=== PATIENT | female | born 1950 | race Caucasian/White ===

== ENCOUNTER → 2019-04-24 | Outpatient (CLI) | payer MEDICARE ==
[~2019-04-24] MED LIST: LVT.025T PO; SULF1TAB38 PO; [UNRECOGNIZED DRUG - REMARK]
--- NOTE | 2019-04-24 15:58 | Diagnostic Imaging Report ---
INDICATION: Postmenopausal screening. COMPARISON: None. FINDINGS: AP lumbar spine: [BMD (g/cm2): 0.828] [T-Score: -3.1] [Z-Score: -1.2] [BMD Previous: N/A] [BMD % Change: N/A] LT Hip Neck: [BMD (g/cm2): 0.705] [T-Score: -2.4] [Z-Score: -0.7] LT Hip Total: [BMD (g/cm2):0.756] [T-Score:-2.0] [Z-Score: -0.6] [BMD Previous: N/A] [BMD % Change: N/A] RT Hip Neck: [BMD (g/cm2):0.679] [T-Score:-2.6] [Z-Score:-0.9] RT Hip Total: [BMD (g/cm2):0.740] [T-score:-2.1] [Z-Score:-0.7] [BMD Previous:N/A] [BMD % Change:N/A] *Indicates significant change from prior examination based on 95% confidence level. World Health Organization criteria for BMD interpretation classify patients as Normal (T-score at or above -1.0), Osteopenic (T-score between -1.0 and -2.5) or Osteoporotic (T-score at or below -2.5). LIMITATIONS AND MODIFICATION: None. FRACTURE RISK (FRAX SCORE): The ten year probability of (%): Major Osteoporotic Fracture: [13.8] Hip Fracture: [3.3] IMPRESSION: 1. Osteoporosis. 2. Baseline examination. 3. See below National Osteoporosis Foundation guidelines on when to potentially initiate pharmacologic therapy. Based on the National Osteoporosis Foundation Guidelines, pharmacologic treatment should be initiated in any of the following, unless clinical conditions suggest otherwise: * Any patient with prior fragility fracture of the hip or vertebrae. A spine fracture indicates 5X risk for subsequent spine fracture and 2X risk for subsequent hip fracture. * Osteoporosis (T-score <-2.5). * Postmenopausal women and men age 50 and older with low bone mass/osteopenia (T-score between -1.0 and -2.5) by DXA and 10-year major osteoporotic fracture greater than 20% or a 10-year probability of hip fracture greater than 3%. These fracture risks are supplied above in the FRAX score, if applicable. * Clinician judgement and/or patient preferences may indicate treatment for people with 10-year fracture probabilities above or below these levels. Dictated by: Dictated on workstation # [id number]
--- NOTE | 2019-04-24 18:58 | Diagnostic Imaging Report ---
INDICATION: Routine screening. Comparison is made with prior mammogram from 12/03/2014. 2-D and 3-D bilateral screening mammography was performed with CAD. The current study was also evaluated with a Computer Aided Detection (CAD) system. 3-D tomosynthesis was also performed and reviewed. Both breasts remain heterogeneously dense, limiting the sensitivity of mammography. Benign calcifications in the right breast are noted. No mass or malignant appearing microcalcifications are seen. The axillae are unremarkable. IMPRESSION: No mammographic features suspicious for malignancy are identified. ACR BI-RADS Category 2: Benign findings. Result letter will be mailed to the patient. Note: At least 10% of breast cancer is not imaged by mammography. Dictated by: Dictated on workstation # [id number]
== END ==
LOC: RAD 13:06
PROVIDERS: ATTEND Nurse Practitioner Primary Care
DX: Z12.31 Encounter for screening mammogram for malignant neoplasm of breast (principal); N95.9 Unspecified menopausal and perimenopausal disorder; M81.0 Age-related osteoporosis without current pathological fracture
CPT/HCPCS: 77067; 77080

== ENCOUNTER → 2020-09-02 | Outpatient (CLI) | payer MEDICARE ==
[2020-09-02 16:11] LABS: HEMOGLOBIN 13.9 g/dL (11.5-16.0); MEAN PLATELET VOLUME 9.8 fL (9.0-12.2); WHITE BLOOD COUNT 5.9 10^3/uL (4.3-11.0)
[2020-09-02 16:19] LABS: ALBUMIN 4.9 GM/DL (3.2-4.5)
[2020-09-02 16:20] LABS: CHLORIDE 106 MMOL/L (98-107); SODIUM 141 MMOL/L (135-145)
[2020-09-02 16:21] LABS: CALCIUM 9.1 MG/DL (8.5-10.1)
[2020-09-02 16:22] LABS: GLUCOSE 109 MG/DL (70-105)
[2020-09-02 16:23] LABS: CARBON DIOXIDE 22 MMOL/L (21-32)
[2020-09-02 16:24] LABS: BILIRUBIN,TOTAL 0.5 MG/DL (0.1-1.0)
[2020-09-02 16:25] LABS: ALKALINE PHOSPHATASE 109 U/L (40-136)
[2020-09-02 16:26] LABS: CREATININE SERUM 0.89 MG/DL (0.60-1.30); GFR ESTIMATED > 60
[2020-09-02 16:27] LABS: BUN/CREATININE RATIO 12
[2020-09-02 16:29] LABS: ALANINE AMINOTRANSFERASE 34 U/L (0-55); CREATINE KINASE 132 U/L (29-168)
== END ==
LOC: CARD 12:45
PROVIDERS: ATTEND Nurse Practitioner Family
DX: I10 Essential (primary) hypertension (principal); E03.8 Other specified hypothyroidism; R07.9 Chest pain, unspecified
CPT/HCPCS: 36415; 80053; 82550; 84439; 84443; 84484; 85027; 93005

== ENCOUNTER 2020-09-06 14:49 | Emergency (ER) | payer MEDICARE ==
[~2020-09-06] VITALS: Ht 157.8 cm; Wt 60.3 kg
--- NOTE | 2020-09-06 15:09 | ED Cardiac General ---
History of Present Illness General Chief Complaint: Respiratory Problems Stated Complaint: WEAK,WOBBLY,TROUBLE BREATHING Nursing Triage Note: PT AMBULATE TO ROOM 06 WITH C/O WEAKNESS, SOB X2 WEEKS. PT REPORTS RECENT DX OF HYPERTENSION X2 WEEKS AGO. Source: patient Exam Limitations: no limitations History of Present Illness Date Seen by Provider: Sep 06, 2020 Time Seen by Provider: 14:56 Initial Comments The patient presents to the ER by private conveyance from home with chief complaint of anxiety about her hypertension and feeling weak and tired for the past 2 weeks. She went to Dr. Mejia's office a week ago had an EKG and some blood work done. She was set up to go see cardiology but does not have the appointment date yet. She does not have a history of coronary disease. She denies chest pain or lung disease. She is not a smoker. She was noted to have significantly elevated high blood pressure and was started on metoprolol in addition to her amlodipine. She said tonight her blood pressure was 170 systolic. She noted when the metoprolol was started this did decrease her symptoms. She is not having any swelling cough fever chills vomiting but she is having some mild nausea occasionally. She has never had cardiac catheterization. She had been referred to Dr. Kang but has not seen him yet. She has a history of hypothyroidism and hyperlipidemia as well as hypertension but no diabetes or significant familial history. No personal coronary history. Not a smoker. Allergies and Home Medications Allergies Coded Allergies: No Known Allergies (Verified Allergy, Unknown, 01/31/06) Home Medications Levothyroxine Sodium 25 Mcg Tablet, 1 EACH PO DAILY, (Reported) Trimethoprim/Sulfamethoxazole 1 Ea Tablet, 1 EA PO BID FOR INFECTION Prescribed by: VLAD TAYLOR on 02/27/12 9946 [blood pressure pill?] , DAILY, (Reported) Patient Home Medication List Home Medication List Reviewed: Yes Review of Systems Review of Systems Constitutional: No chills, No fever EENTM: No Blurred Vision, No Double Vision Respiratory: Denies Cough, Denies Shortness of Air Cardiovascular: Denies Chest Pain, Denies Lightheadedness Gastrointestinal: Denies Constipated, Denies Diarrhea, Denies Nausea Genitourinary: Denies Burning, Denies Discharge Musculoskeletal: No back pain, No joint pain All Other Systems Reviewed Negative Unless Noted: Yes Past Hrdtiqv-Mdxxvp-Fvuhwf Hx Patient Social History Alcohol Use: Regular Use Alcohol Beverage of Choice: Whiskey (2-3 nightly) Smoking Status: Never a Smoker Recent Infectious Disease Expo: No Physical Exam Vital Signs Vital Signs - First Documented 09/06/20 14:53 Temp 36.8 Pulse 104 Resp 17 B/P (MAP) 192/96 (128) O2 Delivery Room Air Capillary Refill : Less Than 3 Seconds Height, Weight, BMI Height: '" Weight: lbs. oz. kg; 24.00 BMI Method:Stated General Appearance: No Apparent Distress, WD/WN HEENT: PERRL/EOMI, Pharynx Normal, Moist Mucous Membranes Neck: Full Range of Motion, Normal Inspection Respiratory: Chest Non Tender, Lungs Clear, Normal Breath Sounds, No Accessory Muscle Use, No Respiratory Distress Cardiovascular: Regular Rate, Rhythm, Normal Peripheral Pulses Gastrointestinal: Normal Bowel Sounds, Non Tender, Soft Extremity: Normal Capillary Refill, Normal Inspection, No Pedal Edema Neurologic/Psychiatric: Alert, Oriented x3 Skin: Normal Color, Warm/Dry Progress/Results/Core Measures Results/Orders Lab Results Laboratory Tests Test 09/06/20 15:05 Range/Units White Blood Count 6.0 4.3-11.0 10^3/uL Red Blood Count 4.73 3.80-5.11 10^6/uL Hemoglobin 14.8 11.5-16.0 g/dL Hematocrit 44 35-52 % Mean Corpuscular Volume 92 80-99 fL Mean Corpuscular Hemoglobin 31 25-34 pg Mean Corpuscular Hemoglobin Concent 34 32-36 g/dL Red Cell Distribution Width 13.1 10.0-14.5 % Platelet Count 262 130-400 10^3/uL Mean Platelet Volume 10.2 9.0-12.2 fL Immature Granulocyte % (Auto) 0 % Neutrophils (%) (Auto) 52 42-75 % Lymphocytes (%) (Auto) 38 12-44 % Monocytes (%) (Auto) 7 0-12 % Eosinophils (%) (Auto) 3 0-10 % Basophils (%) (Auto) 0 0-10 % Neutrophils # (Auto) 3.1 1.8-7.8 10^3/uL Lymphocytes # (Auto) 2.3 1.0-4.0 10^3/uL Monocytes # (Auto) 0.4 0.0-1.0 10^3/uL Eosinophils # (Auto) 0.2 0.0-0.3 10^3/uL Basophils # (Auto) 0.0 0.0-0.1 10^3/uL Immature Granulocyte # (Auto) 0.0 0.0-0.1 10^3/uL Prothrombin Time 12.6 12.2-14.7 SEC INR Comment 0.9 0.8-1.4 Activated Partial Thromboplast Time 31 24-35 SEC D-Dimer < 0.27 0.00-0.49 UG/ML Sodium Level 140 135-145 MMOL/L Potassium Level 3.6 3.6-5.0 MMOL/L Chloride Level 105 98-107 MMOL/L Carbon Dioxide Level 21 21-32 MMOL/L Anion Gap 14 5-14 MMOL/L Blood Urea Nitrogen 10 7-18 MG/DL Creatinine 0.82 0.60-1.30 MG/DL Estimat Glomerular Filtration Rate > 60 BUN/Creatinine Ratio 12 Glucose Level 113 H 70-105 MG/DL Calcium Level 9.0 8.5-10.1 MG/DL Corrected Calcium 8.5-10.1 MG/DL Magnesium Level 2.0 1.6-2.4 MG/DL Total Bilirubin 0.4 0.1-1.0 MG/DL Aspartate Amino Transf (AST/SGOT) 26 5-34 U/L Alanine Aminotransferase (ALT/SGPT) 27 0-55 U/L Alkaline Phosphatase 121 40-136 U/L Myoglobin 25.5 10.0-92.0 NG/ML Troponin I < 0.028 <0.028 NG/ML Total Protein 8.3 H 6.4-8.2 GM/DL Albumin 5.1 H 3.2-4.5 GM/DL My Orders Orders - CLYDE JACK Cbc With Automated Diff (09/06/20 15:03) Magnesium (09/06/20 15:03) Chest 1 View, Ap/Pa Only (09/06/20 15:03) Ekg Tracing (09/06/20 15:03) Comprehensive Metabolic Panel (09/06/20 15:03) Myoglobin Serum (09/06/20 15:03) Protime With Inr (09/06/20 15:03) Partial Thromboplastin Time (09/06/20 15:03) O2 (09/06/20 15:03) Monitor-Rhythm Ecg Trace Only (09/06/20 15:03) Lipid Panel (09/07/20 06:00) Ed Iv/Invasive Line Start (09/06/20 15:03) BNP (09/06/20 15:03) Fibrin Degradation Products (09/06/20 15:03) Troponin I (09/06/20 15:03) Nitroglycerin 0.4 Mg Btl 25's (Nitrostat (09/06/20 15:15) Aspirin Chewable Tablet (Baby Aspirin Ch (09/06/20 15:15) Ekg Tracing (09/06/20 15:40) Medications Given in ED Current Medications Medications Dose Ordered Sig/Josefa Route Start Time Stop Time Status Last Admin Dose Admin Aspirin 324 mg ONCE ONCE PO 09/06/20 15:15 09/06/20 15:16 DC 09/06/20 15:08 324 MG Nitroglycerin 0.4 mg UD PRN SL 09/06/20 15:15 09/06/20 15:08 0.4 MG Vital Signs/I&O 09/06/20 14:53 Temp 36.8 Pulse 104 Resp 17 B/P (MAP) 192/96 (128) O2 Delivery Room Air Blood Pressure Mean: 128 Progress Progress Note : Time: 15:10 Progress Note Hypertensive urgency. Potentially an atypical angina. We will check her labs, chest x-ray and at this time she has a septic vital signs. Lesser something that looks like pneumonia this is likely more related to your cardiac since her hypertensive urgency was improved with metoprolol which also improved her symptoms last week. While she is not having chest pain her heart score would be 5 points even with a negative troponin. Initial ECG Impression Date: Sep 06, 2020 Initial ECG Impression Time: 14:59 Initial ECG Rate: 93 Initial ECG Rhythm: Normal Sinus Initial ECG Intervals: Normal Initial ECG Impression: Nonspecific Changes Initial ECG Comparisson: No Previous ECG Available Comment No previous EKGs to compare to. There is some borderline ST depression in the lateral leads V4, V5 and V6 approximately 1 block. 2 and aVF also share about 1/2-[address] depression. There is a half block of elevation in lead aVR. No evident ST elevation myocardial infarction. EKG : EKG Time: 15:42 Rate: 72 Rhythm: Normal Sinus Intervals: Normal ECG Comparisson: Changed ECG Impression: Normal Comment Normal sinus rhythm without clinically relevant ST changes. The minor, ST changes of uncertain significance are no longer present on the EKG. Diagnostic Imaging Diagonstic Imaging: Xray Plain Films/CT/US/NM/MRI: chest Comments [facility] [place], [place] NAME: JAIR ARRINGTON [facility] REC#: [id number] PT STATUS: REG ER : 1950 PHYSICIAN: CLYDE JACK MD ADMIT DATE: 09/06/20/ER Draft Date of Exam:09/06/20 CHEST 1 VIEW, AP/PA ONLY INDICATION: Chest pain. EXAMINATION: Portable erect AP chest at 3:18 p.m. FINDINGS: The heart size is within normal limits and stable when compared to 10/21/2006. The lungs remain clear. There is still no sign of failure, pneumonia or a pleural effusion. The mediastinum is not widened. The osseous structures are intact. IMPRESSION: There is no evidence for active disease. Dictated on workstation # [id number] Dict: 09/06/20 1531 Trans: 09/06/20 1539 [facility] [id number] Interpreted by: REVA REAGAN MD Electronically signed by: Reviewed: Reviewed by Me Consults : Consulting Physician: Huyen SUGGS MD Consults Notes Discussed the case with Dr. Pagan and since the patient is feeling better after some blood pressure control nitroglycerin he is okay with initiating some lisinopril and have her continue to follow-up with Dr. Kang outpatient. Departure Impression Primary Impression: Hypertensive urgency Disposition: HOME, SELF-CARE Condition: Stable Departure-Patient Inst. Decision time for Depature: 15:45 Referrals: KAUSHIK MIRANDA DO (PCP) Primary Care Physician WILNER BRAMBILA APRN (Family) Primary Care Physician LACY KANG MD Patient Instructions: Malignant Hypertension (DC) Add. Discharge Instructions: Promptly return to the ER if you experience chest pain or worsening shortness of air. Continue to take your medications as prescribed. Take lisinopril 20 mg daily. Tuesday call Dr. Kang's office and request follow-up next week. All discharge instructions reviewed with patient and/or family. Voiced understanding. Scripts Lisinopril (Lisinopril) 20 Mg Tablet 20 MG PO DAILY for 14 Days, #14 TAB 0 Refills Prov: CLYDE JACK 09/06/20 Copy Copies To 1: LACY KANG MD, TITUS J Sep 06, 2020 15:09
[2020-09-06] MEDS ORDERED: NITROGLYCERIN 0.4 MG SL TABS BTL 25'S SL PRN (15:15)
[2020-09-06] MEDS ORDERED: ASPIRIN 81 MG CHEW (CHILDREN'S ASA) PO ONE (15:15)
[2020-09-06 15:22] LABS: ALBUMIN 5.1 GM/DL (3.2-4.5); CHLORIDE 105 MMOL/L (98-107); INR 0.9 (0.8-1.4); POTASSIUM 3.6 MMOL/L (3.6-5.0); PROTHROMBIN TIME PATIENT 12.6 SEC (12.2-14.7); SODIUM 140 MMOL/L (135-145)
[2020-09-06 15:25] LABS: GLUCOSE 113 MG/DL (70-105); TOTAL PROTEIN 8.3 GM/DL (6.4-8.2)
[2020-09-06 15:26] LABS: CARBON DIOXIDE 21 MMOL/L (21-32)
[2020-09-06 15:27] LABS: BILIRUBIN,TOTAL 0.4 MG/DL (0.1-1.0)
[2020-09-06 15:28] LABS: ALKALINE PHOSPHATASE 121 U/L (40-136); CREATININE SERUM 0.82 MG/DL (0.60-1.30); GFR ESTIMATED > 60
[2020-09-06 15:29] LABS: BUN/CREATININE RATIO 12
[2020-09-06 15:30] LABS: BASOPHILS % (AUTO) 0 % (0-10); EOSINOPHILS # (AUTO) 0.2 10^3/uL (0.0-0.3); EOSINOPHILS % (AUTO) 3 % (0-10); HEMATOCRIT 44 % (35-52); HEMOGLOBIN 14.8 g/dL (11.5-16.0); LYMPHOCYTES # (AUTO) 2.3 10^3/uL (1.0-4.0); LYMPHOCYTES % (AUTO) 38 % (12-44); MEAN CORPUSCULAR HEMOGLOBIN 31 pg (25-34); MEAN CORPUSCULAR HGB CONC 34 g/dL (32-36); MEAN CORPUSCULAR VOLUME 92 fL (80-99); MEAN PLATELET VOLUME 10.2 fL (9.0-12.2); MONOCYTES # (AUTO) 0.4 10^3/uL (0.0-1.0); MONOCYTES % (AUTO) 7 % (0-12); NEUTROPHILS # (AUTO) 3.1 10^3/uL (1.8-7.8); NEUTROPHILS % (AUTO) 52 % (42-75); PLATELET COUNT 262 10^3/uL (130-400)
[2020-09-06 15:31] LABS: ALANINE AMINOTRANSFERASE 27 U/L (0-55)
--- NOTE | 2020-09-06 15:41 | Diagnostic Imaging Report ---
INDICATION: Chest pain. EXAMINATION: Portable erect AP chest at 3:18 p.m. FINDINGS: The heart size is within normal limits and stable when compared to 10/21/2006. The lungs remain clear. There is still no sign of failure, pneumonia or a pleural effusion. The mediastinum is not widened. The osseous structures are intact. IMPRESSION: There is no evidence for active disease. Dictated by: Dictated on workstation # [id number]
[2020-09-06] MEDS ORDERED: LISI20TA26 PO (15:52)
[2020-09-06] MEDS ORDERED: lisINopril 20 MG (PRINIVIL) TABLET PO ONE (16:00)
[2020-09-06 16:12] VITALS: BP 129/71
== END 2020-09-06 16:12 | disposition home or self-care (01) ==
LOC: EDUNIT# 14:49 → ER 14:50
DX: I16.0 Hypertensive urgency (principal); F41.9 Anxiety disorder, unspecified
CPT/HCPCS: 36415; 71045; 80053; 83735; 83874; 83880; 84484; 85025; 85379; 85610; 85730; 93005; 93041

== ENCOUNTER → 2020-09-17 | Outpatient (CLI) | payer MEDICARE ==
[~2020-09-17] VITALS: Ht 157 cm; Wt 59.0 kg
[~2020-09-17] MED LIST changes: +CATHETER FLUSH 10 ML SYR IV PRN; +LISI20TA26 PO
[2020-09-17 13:03] VITALS: BP 146/79
--- NOTE | 2020-09-17 15:18 | Cardiology Stress Test Report ---
Stress Test Report Date of Procedure/Referring: Date of Procedure: Sep 17, 2020 PCP Lacy Kang MD Admitting Physician Vesna Sutton DO Indications: HTN Baseline Heart Rate: 79 Baseline Blood Pressure: Blood Pressure Systolic: 146 Blood Pressure Diastolic: 79 Vital Signs Date Time Temp Pulse Resp B/P (MAP) Pulse Ox O2 Delivery O2 Flow Rate FiO2 09/17/20 13:03 77 146/79 (101) 98 Room Air Baseline Vital Signs Vital Signs Date Time Temp Pulse Resp B/P (MAP) Pulse Ox O2 Delivery O2 Flow Rate FiO2 09/17/20 13:03 77 146/79 (101) 98 Room Air Baseline EKG: Baseline EKG: NSR Summary: After explaining the procedure and details to the patient, she signed the consent and was brought to the stress nuclear laboratory. Patient exercised on standard Loco protocol, EKG, heart rate and blood pressure were monitored continuously, resting and stress doses of radio tracer were injected, imaging was acquired and reviewed in the short axis, horizontal long axis and vertical long axis views Patient was able to exercise for a total of 5:30 minutes on Loco protocol, METs 7.1 Maximum heart rate 135 Maximum blood pressure 160/69 Stress EKG, Minimal nondiagnostic changes Recovery EKG, Return to baseline TID: 0.99 SSS: 3 SDS: 3 EF: 72 Conclusion: 1. Good exercise tolerance for total of 5 minutes 30 seconds on standard Loco protocol, 7.1 METs achieving 88 percent of maximum expected heart rate 2. Appropriate heart rate and blood pressure response to exercise returned to baseline during recovery 3. Minimal nondiagnostic EKG changes with exercise returned to baseline during recovery 4. No ischemia or infarction on SPECT images, breast attenuation was noted 5. Normal LV size, EF 72 percent LACY KANG MD Sep 17, 2020 15:18
== END ==
LOC: CARD 10:29
PROVIDERS: ATTEND Internal Medicine Cardiovascular Disease
DX: I10 Essential (primary) hypertension (principal)
CPT/HCPCS: 78452; 93017; 93306; A9502

== ENCOUNTER → 2020-09-18 | Outpatient (CLI) | payer MEDICARE ==
[~2020-09-18] MED LIST changes: -CATHETER FLUSH 10 ML SYR IV PRN
[2020-09-18 10:28] LABS: ALANINE AMINOTRANSFERASE 28 U/L (0-55); ALBUMIN 4.7 GM/DL (3.2-4.5); ALKALINE PHOSPHATASE 104 U/L (40-136); BILIRUBIN,TOTAL 0.5 MG/DL (0.1-1.0); BUN/CREATININE RATIO 13; CARBON DIOXIDE 24 MMOL/L (21-32); CHLORIDE 104 MMOL/L (98-107); CHOLESTEROL 161 MG/DL (< 200); CREATININE SERUM 0.83 MG/DL (0.60-1.30); GFR ESTIMATED > 60; GLUCOSE 102 MG/DL (70-105); HDL CHOLESTEROL 57 MG/DL (40-60); SODIUM 138 MMOL/L (135-145); TOTAL PROTEIN 7.5 GM/DL (6.4-8.2); TRIGLYCERIDES 74 MG/DL (<150); VLDL CHOLESTEROL 15 MG/DL (5-40)
== END ==
LOC: LAB 09:56
PROVIDERS: ATTEND Internal Medicine Cardiovascular Disease
DX: E78.2 Mixed hyperlipidemia (principal)
CPT/HCPCS: 36415; 80053; 80061

== ENCOUNTER → 2021-02-10 | Outpatient (CLI) | payer MEDICARE ==
[~2021-02-10] MED LIST changes: +CATHETER FLUSH 10 ML SYR IV PRN; +HOLD METFORMIN - RECEIVED CONTRAST 20 ML VIAL IV SCH; +IOHEXOL 350 MG/ML 100 ML (OMNIPAQUE 350) VIAL IV ONE; +NS 100 ML (IVPB) BAG IV ONE
[2021-02-10 11:33] LABS: CALCIUM 9.2 MG/DL (8.5-10.1); CREATININE SERUM 0.8 MG/DL (0.60-1.30); POTASSIUM 3.9 MMOL/L (3.6-5.0)
--- NOTE | 2021-02-10 14:21 | Diagnostic Imaging Report ---
PROCEDURE: CT Angio Abdomen/Pelvis with. TECHNIQUE: Multiple contiguous axial images were obtained through the abdomen and pelvis after the uneventful bolus administration of intravenous contrast. Sagittal and coronal MIP reconstructions with then performed. All CT scans use one or more of the following dose optimizing techniques: Automated exposure control, MA and/or KvP adjustment based on patient size and exam type or iterative reconstruction. INDICATION: Abdominal aortic aneurysm. COMPARISON: No prior studies are available for comparison. FINDINGS: The lung bases are free of acute infiltrates. There is some scarring or atelectasis in the left lower lobe. The abdominal aorta is normal in caliber. There is no evidence of aneurysm. There is no dissection. The celiac and SMA are widely patent. The PATTIE is patent. There are two renal arteries on the right and a single renal artery on the left, which appear to be patent. Both common and external iliac arteries as well as common femoral arteries are patent. Generalized low density throughout the liver is noted consistent with hepatic steatosis. No discrete liver mass is detected. The gallbladder is unremarkable. There is no biliary ductal dilatation. Pancreas and spleen are unremarkable. No adrenal mass is detected. Kidneys are unremarkable. No calculi or hydronephrosis is identified. No central retroperitoneal or mesenteric lymphadenopathy is identified. Small and large bowel loops are normal in caliber. There is no obstruction. No free fluid or fluid collection is identified. There is generalized diverticulosis of the sigmoid, but no evidence of acute diverticulitis. No iliac or inguinal lymphadenopathy is identified. Bladder is unremarkable. Bony structures are nonacute. IMPRESSION: 1. Unremarkable CT angiogram of the abdomen and pelvis without evidence of abdominal aortic aneurysm or dissection. 2. Hepatic steatosis. 3. Uncomplicated diverticulosis. Dictated by: Dictated on workstation # [id number]
== END ==
LOC: RAD 11:45
PROVIDERS: ATTEND Internal Medicine Cardiovascular Disease
DX: K76.0 Fatty (change of) liver, not elsewhere classified (principal); K57.30 Diverticulosis of large intestine without perforation or abscess without bleeding; I10 Essential (primary) hypertension
CPT/HCPCS: 36415; 74174; 80048

== ENCOUNTER 2022-08-30 05:36 | Outpatient (CLI) | payer MEDICARE ==
[~2022-08-30] VITALS: Ht 157.5 cm; Wt 58.2 kg
[~2022-08-30 05:36] MED LIST changes: -CATHETER FLUSH 10 ML SYR IV PRN; -HOLD METFORMIN - RECEIVED CONTRAST 20 ML VIAL IV SCH; -IOHEXOL 350 MG/ML 100 ML (OMNIPAQUE 350) VIAL IV ONE; -NS 100 ML (IVPB) BAG IV ONE
[2022-09-01] MEDS ORDERED: LATA7.5D OP (14:19)
[2022-09-01] MEDS ORDERED: ROSU10TA28 PO (14:19)
[2022-09-01] MEDS ORDERED: LEVO100C4 PO (14:19)
[2022-09-01] MEDS ORDERED: AMLO-251 PO (14:19)
[2022-09-01] MEDS ORDERED: BRIM5DRO12 OP (14:19)
== END 2022-09-01 14:31 | disposition home or self-care (01) ==
LOC: PREOP 05:36
PROVIDERS: ATTEND Specialist
DX: Z01.818 Encounter for other preprocedural examination (principal)

== ENCOUNTER 2022-09-03 07:57 | Day surgery (SDC) | payer MEDICARE ==
[~2022-09-03] VITALS: Ht 157.5 cm; Wt 58.2 kg
[~2022-09-03 07:57] MED LIST changes: +AMLO-251 PO; +BRIM5DRO12 OP; +LATA7.5D OP; +LEVO100C4 PO; +ROSU10TA28 PO
[2022-09-03 08:05] VITALS: BP 139/82
[2022-09-03] MEDS: TETRACAINE 0.5% OPHTH SOLN 4 ML BTL (SINGLE DOSE ONLY) OU PRN ×4 (08:19→08:33)
[2022-09-03] MEDS: TROPICAMIDE 1% OPH SOLN (MYDRIACYL) 15 ML BTL OP SCH ×3 (08:23→08:33)
[2022-09-03] MEDS: PHENYLEPHRINE 10% OPHTH (NEO-SYN) 5 ML BTL OU SCH ×3 (08:23→08:33)
[2022-09-03] MEDS ORDERED: TIMOLOL 0.5% (CATARACTS) 0.3 ML BTL OU PRN (08:30)
[2022-09-03] MEDS ORDERED: MOXIFLOXACIN OPHTH SOLN 5 MG/ML 0.3 ML SYRINGE OP ONE (08:30)
[2022-09-03] MEDS ORDERED: POVIDONE (BETADINE) OPHTH SOLN 5% 30 ML OP ONE (08:30)
--- NOTE | 2022-09-03 08:47 | Ophthalmologist Pre-Op Note ---
Pre-Operative Progress Note H&P Reviewed The H&P was reviewed, patient examined and no changes noted. Date H&P Reviewed: Sep 03, 2022 Time H&P Reviewed: 08:47 Pre-Op Dx Cataract, Left Eye CHRISTA DUMONT MD Sep 03, 2022 08:47
[2022-09-03] MEDS ORDERED: MIDAZOLAM 2 MG/2 ML (VERSED) VIAL ONE (08:52)
--- NOTE | 2022-09-03 09:10 | Ophthalmology Operative Report ---
Cataract removal/placement IOL PREOPERATIVE DIAGNOSIS: Cataract Left Eye POSTOPERATIVE DIAGNOSIS: Cataract Left Eye PROCEDURE: Cataract removal and placement of posterior chamber implant, left eye SURGEON: Oskar Dumont ANESTHESIA: Topical with sedation COMPLICATIONS: None ESTIMATED BLOOD LOSS: Minimal DESCRIPTION OF PROCEDURE: After proper informed consent was obtained, the patient, a 71 female, was taken to the Operating Room and the left eye was anesthetized with tetracaine. The left eye was then prepped and draped in the usual manner. A wire lid speculum was placed. A paracentesis was made at the left hand position. Preservative free lidocaine was injected into the anterior chamber followed by viscoelastic. A clear corneal incision was made in the temporal position. A capsulorrhexis was preformed and the central nuclear and cortical material were removed. The posterior capsule was polished and an Brett 20.0 AU00T0 was placed into the capsular bag. The residual viscoelastic was aspirated and balanced saline solution was injected into the anterior chamber. Moxifloxacin was injected into the anterior chamber. The wound was checked and found to be water tight. The patient tolerated the procedure well without complications. OSKAR DUMONT MD Sep 03, 2022 09:10
[2022-09-03 09:20] VITALS: BP 138/74
[2022-09-03] MEDS ORDERED: acetaZOLAMIDE ER 500 MG CAP (DIAMOX SEQUELS) PO ONE (10:30)
--- NOTE | 2022-09-03 11:49 | Anesthesia-General Post-Op ---
MAC Patient Condition Mental Status/LOC: Same as Preop Cardiovascular: Satisfactory Nausea/Vomiting: Absent Respiratory: Satisfactory Pain: Controlled Complications: Absent Post Op Complications Complications None Follow Up Care/Instructions Patient Instructions None needed. Anesthesiology Discharge Order Discharge Order Patient is doing well, no complaints, stable vital signs, no apparent adverse anesthesia problems. No complications reported per nursing. KIRSTEN CHAMPION CRNA Sep 03, 2022 11:49
== END 2022-09-03 09:21 ==
LOC: SDC 07:57
PROVIDERS: ATTEND Specialist
DX: H25.12 Age-related nuclear cataract, left eye (principal); Z87.891 Personal history of nicotine dependence
CPT/HCPCS: 66984; V2632